=== PATIENT | male | born 1960 | race Caucasian/White ===

== ENCOUNTER 2024-04-18 14:40 | Inpatient (IN) | payer MEDICARE, OTHER ==
[~2024-04-18] VITALS: Ht 170.2 cm; Wt 62.1 kg
[2024-04-18] MEDS ORDERED: METF-442 PO (16:23)
[2024-04-18] MEDS ORDERED: LOSA100T31 PO (16:23)
[2024-04-18] MEDS ORDERED: FURO40TA5 PO (16:23)
[2024-04-18] MEDS ORDERED: PANT40TA49 PO (16:23)
[2024-04-18] MEDS ORDERED: SPIR100T5 (16:23)
[2024-04-18] MEDS ORDERED: AMLO-212 PO (16:23)
[2024-04-18] MEDS ORDERED: TEMAZEPAM 15 MG CAPSULE PO PRN (19:45)
[2024-04-18] MEDS ORDERED: MAGNESIUM HYDROXIDE 30 ML LIQUID UDC PO PRN (19:45)
[2024-04-18] MEDS ORDERED: ONDANSETRON 4 MG/2 ML VIAL IV PRN (19:45)
[2024-04-18] MEDS ORDERED: ACETAMINOPHEN 325 MG TABLET PO PRN (19:45)
[2024-04-18] MEDS ORDERED: HYDROCODONE/APAP 5-325MG TABLET PO PRN (19:45)
[2024-04-18 19:56] LABS: PROTEIN, BODY FLUID 2.2 G/DL
[2024-04-18 20:23] LABS: BASOPHILS % (AUTO) 0.5 % (0.0-2.0); CALCIUM 9.2 mg/dL (8.5-10.1); EOSINOPHILS # (AUTO) 0.1 K/uL (0.0-0.7); EOSINOPHILS % (AUTO) 0.7 % (0.0-7.0); HEMATOCRIT 29.3 % (36.7-47.1); HEMOGLOBIN 9.8 g/dL (12.5-16.3); LYMPHOCYTES # (AUTO) 4.5 K/uL (0.8-4.8); LYMPHOCYTES % (AUTO) 53.2 % (20.5-51.5); MEAN CORPUSCULAR HEMOGLOBIN 32.8 uug (23.8-33.4); MEAN CORPUSCULAR HGB CONC 33 g/dL (32.5-36.3); MEAN CORPUSCULAR VOLUME 98.6 fL (73.0-96.2); MONOCYTES # (AUTO) 0.5 K/uL (0.1-1.30); NEUTROPHILS # (AUTO) 3.3 K/uL (1.8-8.9); NEUTROPHILS % (AUTO) 39.6 % (38.5-71.5); PLATELET COUNT (AUTO) 186 K/uL (152-348); RED BLOOD CELL COUNT(AUTO) 2.98 MIL/uL (4.06-5.63); RED CELL DISTRIBUTION WIDTH 21.4 % (12.1-16.2); WHITE BLOOD COUNT (AUTO) 8.4 K/uL (3.6-10.2)
[2024-04-18 20:31] LABS: DIFFERENTIAL COMMENT 1
[2024-04-18 20:32] LABS: POTASSIUM 6.5 mmol/L (3.5-5.1)
[2024-04-18 20:33] LABS: CREATININE 8.1 mg/dL (0.6-1.3)
[2024-04-18 20:47] LABS: TOTAL VOLUME,BODY FLUID 12 mL; WBC, BODY FLUID 286 /cu. mm (0-200/cu.mm)
[2024-04-18] MEDS ORDERED: DEXTROSE 50% 50 ML DISP.SYRIN IV ONE (21:00)
[2024-04-18] MEDS ORDERED: INSULIN REGULAR, HUMAN 1000 UNIT/10 ML VIAL IV ONE (21:00)
[2024-04-18 21:02] LABS: EOSINOPHILS % (MANUAL) 1 % (0-8); LYMPHOCYTES % (MANUAL) 13 % (20-40); MONOCYTES % (MANUAL) 2 % (2-10); NEUTROPHILS % (MANUAL) 84 % (42-75); PLATELET ESTIMATE ADEQUATE
[2024-04-18 21:03] LABS: ANISOCYTOSIS 2+; TARGET CELLS 1+
[2024-04-18 21:04] LABS: TEAR DROP CELLS 1+
[2024-04-18] MEDS ORDERED: IPRATROPIUM BROMIDE 0.5 MG/2.5 ML NEBU NEB PRN (21:15)
[2024-04-18] MEDS ORDERED: ALBUTEROL SULFATE 2.5 MG/3 ML NEBU NEB PRN (21:15)
[2024-04-18 21:22] LABS: POLYNUCLEAR, BODY FLUID 24 % (0-25%)
[2024-04-18 21:23] LABS: MONOCYTES,BODY FLUID 7 %
[2024-04-18] MEDS ORDERED: ALBUMIN HUMAN 25% 50 ML ONE (21:38)
[2024-04-18] MEDS ORDERED: CEFEPIME HCL 1 G VIAL ONE (21:38)
[2024-04-18] MEDS ORDERED: SODIUM BICARBONATE 8.4% 50 MEQ/50 ML DISP.SYRIN IV ONE (21:39)
[2024-04-18] MEDS ORDERED: SODIUM POLYSTYRENE SULFONATE 15 G/60 ML LIQUID UDC ONE ×2 (21:39→23:07)
[2024-04-18] MEDS ORDERED: DEXTROSE 50% 50 ML DISP.SYRIN ONE (21:39)
[2024-04-18] MEDS ORDERED: CALCIUM GLUCONATE 1 GM/10 ML VIAL IV ONE (21:40)
[2024-04-18] MEDS ORDERED: INSULIN REGULAR, HUMAN 1000 UNIT/10 ML VIAL ONE (21:41)
[2024-04-18] MEDS: CALCIUM GLUCONATE IV 1 GM in IV DEXTROSE 5% 50 ML IV ONE (22:00)
[2024-04-18] MEDS: SODIUM BICARBONATE 8.4% 50 MEQ/50 ML DISP.SYRIN IV ONE (22:02)
[2024-04-18] MEDS: DEXTROSE 50% 50 ML DISP.SYRIN IV ONE (22:04)
[2024-04-18] MEDS: INSULIN REGULAR, HUMAN 1000 UNIT/10 ML VIAL IV ONE (22:05)
[2024-04-18] MEDS: SODIUM POLYSTYRENE SULFONATE 15 G/60 ML LIQUID UDC PO ONE ×2 (23:00→23:15)
[2024-04-18] MEDS: ALBUMIN HUMAN 25% 50 ML IV ONE (23:00)
[2024-04-18] MEDS: CEFEPIME HCL 1 G in IV DEXTROSE 5% 50 ML IV SCH (23:10)
[2024-04-18] MEDS: SODIUM ZIRCONIUM CYCLOSILICATE 10 GM POWD.PACK PO SCH (23:45)
[2024-04-19] VITALS (19 sets, daily range): BP systolic 68–122; BP diastolic 44–81; TEMP 97.7; O2SAT 93–98
[2024-04-19] MEDS ORDERED: DEXTROSE 50% 50 ML DISP.SYRIN IV PRN
[2024-04-19] MEDS ORDERED: SODIUM BICARBONATE 8.4% 50 MEQ/50 ML DISP.SYRIN IV ONE (00:26)
[2024-04-19 01:09] LABS: CALCIUM 9.7 mg/dL (8.5-10.1); POTASSIUM 6.2 mmol/L (3.5-5.1)
[2024-04-19 01:32] LABS: CREATININE 8.2 mg/dL (0.6-1.3)
[2024-04-19] MEDS ORDERED: NOREPINEPHRINE 8MG/NS 250ML 250 ML IV ONE ×3 (05:51→22:14)
[2024-04-19] MEDS: NOREPINEPHRINE 8MG/NS 250ML 250 ML IV PRN (05:52)
[2024-04-19 07:00] LABS: BASOPHILS # (AUTO) 0.1 K/UL (0.0-0.2); BASOPHILS % (AUTO) 1.5 % (0.0-2.0); EOSINOPHILS # (AUTO) 0.1 K/uL (0.0-0.7); EOSINOPHILS % (AUTO) 0.6 % (0.0-7.0); HEMATOCRIT 27.8 % (36.7-47.1); HEMOGLOBIN 9.6 g/dL (12.5-16.3); LYMPHOCYTES # (AUTO) 4.3 K/uL (0.8-4.8); LYMPHOCYTES % (AUTO) 51.9 % (20.5-51.5); MEAN CORPUSCULAR HEMOGLOBIN 33.7 uug (23.8-33.4); MEAN CORPUSCULAR HGB CONC 35 g/dL (32.5-36.3); MEAN CORPUSCULAR VOLUME 97.6 fL (73.0-96.2); MONOCYTES # (AUTO) 0.4 K/uL (0.1-1.30); MONOCYTES % (AUTO) 4.5 % (0.0-11.0); NEUTROPHILS # (AUTO) 3.4 K/uL (1.8-8.9); NEUTROPHILS % (AUTO) 41.5 % (38.5-71.5); PLATELET COUNT (AUTO) 197 K/uL (152-348); RED BLOOD CELL COUNT(AUTO) 2.84 MIL/uL (4.06-5.63); RED CELL DISTRIBUTION WIDTH 21.8 % (12.1-16.2); WHITE BLOOD COUNT (AUTO) 8.3 K/uL (3.6-10.2)
[2024-04-19] MEDS: PANTOPRAZOLE SODIUM 40 MG TABLET.DR PO SCH (07:00)
[2024-04-19 07:03] LABS: DIFFERENTIAL COMMENT 1
[2024-04-19 07:47] LABS: ALBUMIN 1.9 g/dL (3.4-5.0); BILIRUBIN,DIRECT 5.6 mg/dL (0.0-0.2); BILIRUBIN,TOTAL 6.2 mg/dL (0.2-1.0); CALCIUM 9.5 mg/dL (8.5-10.1); MAGNESIUM 2.5 mg/dL (1.8-2.4); PHOSPHOROUS 7.6 mg/dL (2.5-4.9); POTASSIUM 6.1 mmol/L (3.5-5.1); TOTAL PROTEIN, SERUM 7.2 g/dL (6.4-8.2)
[2024-04-19 07:59] LABS: CREATININE 8.7 mg/dL (0.6-1.3)
[2024-04-19] MEDS ORDERED: SODIUM ZIRCONIUM CYCLOSILICATE 10 GM POWD.PACK ONE ×2 (08:05→22:47)
[2024-04-19] MEDS ORDERED: PANTOPRAZOLE SODIUM 40 MG TABLET.DR PO ONE (08:09)
[2024-04-19] MEDS: BLOOD SUGAR DIAGNOSTIC 1 EACH STRIP VI SCH (08:25)
[2024-04-19] MEDS ORDERED: CEFEPIME HCL 1 G VIAL ONE (09:58)
[2024-04-19] MEDS: SODIUM BICARBONATE 8.4% 100 MEQ in IV NS 1000 ML 1,000 ML IV PRN (17:00)
[2024-04-19 18:23] LABS: THYROID STIMULATING HORMONE 3.534 mIU/mL (0.358-3.740)
[2024-04-19] MEDS: INSULIN REGULAR, HUMAN 1000 UNIT/10 ML VIAL SQ PRN (21:06)
[2024-04-19] MEDS: CEFEPIME HCL 1 G in IV DEXTROSE 5% 50 ML IV SCH (23:35)
[2024-04-20] VITALS (32 sets, daily range): BP systolic 86–119; BP diastolic 53–87; TEMP 97.5–98.1; O2SAT 93–99
[2024-04-20 05:41] LABS: BASOPHILS # (AUTO) 0.1 K/UL (0.0-0.2); BASOPHILS % (AUTO) 0.8 % (0.0-2.0); EOSINOPHILS # (AUTO) 0.1 K/uL (0.0-0.7); EOSINOPHILS % (AUTO) 0.7 % (0.0-7.0); HEMATOCRIT 27.5 % (36.7-47.1); HEMOGLOBIN 9.3 g/dL (12.5-16.3); LYMPHOCYTES % (AUTO) 43.3 % (20.5-51.5); MEAN CORPUSCULAR HEMOGLOBIN 32.7 uug (23.8-33.4); MEAN CORPUSCULAR HGB CONC 34 g/dL (32.5-36.3); MEAN CORPUSCULAR VOLUME 96.3 fL (73.0-96.2); MONOCYTES # (AUTO) 0.5 K/uL (0.1-1.30); MONOCYTES % (AUTO) 7.3 % (0.0-11.0); NEUTROPHILS # (AUTO) 3.3 K/uL (1.8-8.9); NEUTROPHILS % (AUTO) 47.9 % (38.5-71.5); PLATELET COUNT (AUTO) 138 K/uL (152-348); RED BLOOD CELL COUNT(AUTO) 2.86 MIL/uL (4.06-5.63); RED CELL DISTRIBUTION WIDTH 21.4 % (12.1-16.2); WHITE BLOOD COUNT (AUTO) 6.8 K/uL (3.6-10.2)
[2024-04-20 05:55] LABS: CALCIUM 8.3 mg/dL (8.5-10.1); CREATININE 6.4 mg/dL (0.6-1.3); POTASSIUM 4.7 mmol/L (3.5-5.1)
[2024-04-20 05:57] LABS: MAGNESIUM 2.1 mg/dL (1.8-2.4); PHOSPHOROUS 6.5 mg/dL (2.5-4.9)
[2024-04-20 06:03] LABS: ABG BASE EXCESS -4.5 mmol/L (-2.0-3.0); ABG HCO3 19.1 mmol/L (21.0-28.0); ABG PCO2 30.2 mmHg (35.0-48.0); ABG PO2 73.1 mmHg (83.0-108.0); ABG SITE RIGHT RADIAL; ABG TOTAL HEMOGLOBIN 9.9 G/dL (13.5-17.5); AaDO2 95.2 mmHg; COHb 0.3 % (0.5-1.5); MetHb 0.4 % (0.0-1.5); O2Hb 93.5 % (94.0-98.0)
[2024-04-20] MEDS ORDERED: SODIUM ZIRCONIUM CYCLOSILICATE 10 GM POWD.PACK ONE (06:06)
[2024-04-20] MEDS ORDERED: PANTOPRAZOLE SODIUM 40 MG TABLET.DR PO ONE (06:15)
[2024-04-20 06:29] LABS: DIFFERENTIAL COMMENT 1
[2024-04-20] MEDS ORDERED: NOREPINEPHRINE 8MG/NS 250ML 250 ML IV ONE ×2 (06:35→20:17)
[2024-04-20] MEDS: PANTOPRAZOLE SODIUM 40 MG VIAL IV SCH (10:00)
[2024-04-20] MEDS ORDERED: IV D5/ 0.9% NACL 1,000 ML IV PRN (10:00)
[2024-04-20 10:06] LABS: HEPATITIS B SURFACE AB, QUAL Non Reactive (.); HEPATITIS Be ANTIGEN Negative (Negative); HEPATITIS C VIRUS ANTIBODY Non Reactive (Non Reactive)
[2024-04-20 10:06] LABS: HEPATITIS B SURFACE AG Negative (Negative)
[2024-04-20 11:07] LABS: CARCINOEMBRYONIC AG (CEA) 1.8 ng/mL (0.0-4.7); FOLATE (FOLIC ACID), SERUM 5.5 ng/mL (>3.0)
[2024-04-20] MEDS ORDERED: PANTOPRAZOLE SODIUM 40 MG VIAL ONE (11:14)
[2024-04-20 12:10] LABS: AFP, TUMOR MARKER 24.2 ng/mL (0.0-8.4)
[2024-04-20] MEDS ORDERED: MIDAZOLAM HCL 2 MG/2 ML VIAL ONE (15:33)
[2024-04-20] MEDS: MIDAZOLAM HCL 2 MG/2 ML VIAL IV ONE (15:41)
[2024-04-20 19:14] LABS: PROTEIN, BODY FLUID 4.6 G/DL
[2024-04-20 19:19] LABS: TOTAL VOLUME,BODY FLUID 1200 mL; WBC, BODY FLUID 493 /cu. mm (0-200/cu.mm)
[2024-04-20 20:06] LABS: MONOCYTES,BODY FLUID 1 %; POLYNUCLEAR, BODY FLUID 8 % (0-25%)
[2024-04-21] VITALS (11 sets, daily range): BP systolic 87–109; BP diastolic 57–73; TEMP 98.6; O2SAT 95–98
[2024-04-21] MEDS ORDERED: NOREPINEPHRINE 8MG/NS 250ML 250 ML IV ONE (00:59)
[2024-04-21] MEDS ORDERED: NOREPINEPHRINE BITARTRATE 4 MG/4 ML VIAL IV ONE (06:29)
[2024-04-21] MEDS ORDERED: PANTOPRAZOLE SODIUM 40 MG VIAL ONE (10:17)
[2024-04-21 10:22] LABS: BASOPHILS # (AUTO) 0.1 K/UL (0.0-0.2); DIFFERENTIAL COMMENT 1; EOSINOPHILS % (AUTO) 0.6 % (0.0-7.0); HEMATOCRIT 28.1 % (36.7-47.1); HEMOGLOBIN 9.7 g/dL (12.5-16.3); LYMPHOCYTES # (AUTO) 3.9 K/uL (0.8-4.8); LYMPHOCYTES % (AUTO) 57.7 % (20.5-51.5); MEAN CORPUSCULAR HEMOGLOBIN 33.3 uug (23.8-33.4); MEAN CORPUSCULAR HGB CONC 35 g/dL (32.5-36.3); MEAN CORPUSCULAR VOLUME 96.5 fL (73.0-96.2); MONOCYTES # (AUTO) 0.5 K/uL (0.1-1.30); NEUTROPHILS # (AUTO) 2.3 K/uL (1.8-8.9); NEUTROPHILS % (AUTO) 33.7 % (38.5-71.5); PLATELET COUNT (AUTO) 114 K/uL (152-348); RED BLOOD CELL COUNT(AUTO) 2.91 MIL/uL (4.06-5.63); RED CELL DISTRIBUTION WIDTH 21.3 % (12.1-16.2); WHITE BLOOD COUNT (AUTO) 6.8 K/uL (3.6-10.2)
[2024-04-21 10:43] LABS: CALCIUM 8.1 mg/dL (8.5-10.1); CREATININE 5.1 mg/dL (0.6-1.3)
[2024-04-21 11:02] LABS: BILIRUBIN,DIRECT 6.3 mg/dL (0.0-0.2); BILIRUBIN,TOTAL 7.2 mg/dL (0.2-1.0); MAGNESIUM 1.8 mg/dL (1.8-2.4); PHOSPHOROUS 5.9 mg/dL (2.5-4.9)
== END 2024-04-21 16:15 | disposition hospice, home (50) | DRG 871 ==
LOC: ER 14:40 → TRANSITION 04-19 11:36
PROVIDERS: ADMIT Nurse Practitioner Acute Care; ATTEND Nurse Practitioner Acute Care
PROC: 0W9G3ZZ Drainage of Peritoneal Cavity, Percutaneous Approach (ICD-10-PCS; principal; 2024-04-18)
PROC: 06HY33Z Insertion of Infusion Device into Lower Vein, Percutaneous Approach (ICD-10-PCS; 2024-04-19)
PROC: 5A1D70Z Performance of Urinary Filtration, Intermittent, Less than 6 Hours Per Day (ICD-10-PCS; 2024-04-19)
PROC: 0W993ZX Drainage of Right Pleural Cavity, Percutaneous Approach, Diagnostic (ICD-10-PCS; 2024-04-20)
DX: A41.9 Sepsis, unspecified organism (principal); R65.21 Severe sepsis with septic shock; N17.9 Acute kidney failure, unspecified; C22.8 Malignant neoplasm of liver, primary, unspecified as to type; K56.609 Unspecified intestinal obstruction, unspecified as to partial versus complete obstruction; C90.00 Multiple myeloma not having achieved remission; I12.0 Hypertensive chronic kidney disease with stage 5 chronic kidney disease or end stage renal disease; J90 Pleural effusion, not elsewhere classified; D68.9 Coagulation defect, unspecified; J98.11 Atelectasis; N18.5 Chronic kidney disease, stage 5; E87.5 Hyperkalemia; K72.10 Chronic hepatic failure without coma; K70.31 Alcoholic cirrhosis of liver with ascites; Z85.72 Personal history of non-Hodgkin lymphomas; E11.22 Type 2 diabetes mellitus with diabetic chronic kidney disease; Z79.84 Long term (current) use of oral hypoglycemic drugs; D69.6 Thrombocytopenia, unspecified; R91.8 Other nonspecific abnormal finding of lung field; E78.5 Hyperlipidemia, unspecified; D53.9 Nutritional anemia, unspecified
CPT/HCPCS: 32555; 36415; 36600; 70030-TC; 71045; 71250; 76770; 82105; 82378; 82746; 82803; 83550; 83615; 83735; 83986; 84100; 84155; 84165; 84443; 85025; 85730; 86301; 86706; 86803; 87340; 87350; 90937; A4606; A4663; G0378; J0610; J0692; J1815; J2250; J2470; J3490; J7040; J7050; P9047